=== PATIENT | female | born 1955 | race Caucasian/White ===

== ENCOUNTER 2016-10-23 13:46 | Emergency (ER) | payer OTHER ==
[2016-10-23 13:58] VITALS: RESP 16; TEMP 97.5
--- NOTE | 2016-10-23 15:57 | EDPHY ---
H & P Stated Complaint: head lac Time Seen by Provider: 10/23/16 14:58 HPI/ROS: CHIEF COMPLAINT: forehead laceration HISTORY OF PRESENT ILLNESS: 61-year-old female presents emergency department with a laceration to her forehead from the screen door of a house. Patient knocked on her neighbor's door, the dog's jumped on the screen door that flew open and hit her in the head. Patient denies loss of consciousness, reports she did not fall, states no blurred vision, nausea common confusion. Tetanus is up-to-date. Patient reports initially she had a mild headache, this has resolved, she does not take any anticoagulants. REVIEW OF SYSTEMS: A comprehensive 10 point review of systems is otherwise negative aside from elements mentioned in the history of present illness. Source: Patient Exam Limitations: No limitations - Personal History Current Tetanus/Diphtheria Vaccine: Yes Current Tetanus Diphtheria and Acellular Pertussis (TDAP): Yes - Medical/Surgical History Hx Asthma: Yes Hx Chronic Respiratory Disease: No Hx Diabetes: No Hx Cardiac Disease: No Hx Renal Disease: No Hx Cirrhosis: No Hx Alcoholism: No Hx HIV/AIDS: No Hx Splenectomy or Spleen Trauma: No Other PMH: Asthma - Social History Smoking Status: Never smoked - Physical Exam Exam: Physical Exam Gen: Alert and Oriented, NAD HEENT: PERRL, moist mucous membranes, no hemotympanum, no septal hematoma NECK: no C-spine tenderness Cardiac: normal rate and rhythm PULM: No distress BACK: No CVA tenderness NEURO: Neurologically grossly intact, normal cerebellar exam, normal finger- nose, [id number], rapid alternating movements, normal gait EXTREMITIES: normal appearing SKIN: 1 cm superficial vertical laceration to right upper forehead in hairline PSYCH: answers questions appropriately. Constitutional: Initial Vital Signs Temperature (C) 36.4 C 10/23/16 13:55 Heart Rate 99 10/23/16 13:55 Respiratory Rate 16 10/23/16 13:55 Blood Pressure 153/89 H 10/23/16 13:55 O2 Sat (%) 98 10/23/16 13:55 O2 Delivery Mode Room Air Allergies/Adverse Reactions: Sulfa (Sulfonamide Antibiotics) Allergy (Verified 03/23/11 11:11) Home Medications: Medication Instructions Recorded Detrol LA 0 mg DAILY 03/23/11 Flovent Hfa 0 mg 03/23/11 Hydrochlorothiazide [HCTZ (*)] 25 mg PO DAILY 03/23/11 Hydrocodone/APAP 5/325 [[place] 5 mg PO Q4PRN PRN #20 tab 03/23/11 5/325 (*)] Thyroid Meds 03/23/11 Medical Decision Making Procedures: Procedure: Laceration repair. Verbal consent was obtained from the patient. The 1 cm laceration on the forehead was anesthetized using 1% lidocaine with epinephrine. The wound was carefully irrigated by the emergency department telegraph repeater technician. Next, the wound was prepped and draped in sterile fashion and explored to its base with a gloved finger. There were no deep structures involved. No vascular injury was identified. No foreign bodies were identified. The wound was repaired with 6.0 Prolene, 2. Simple interrupted sutures. The wound repair was simple. The procedure was performed by myself. Tetanus and antibiotic status were addressed. ED Course/Re-evaluation: This patient presents after a minor head injury with no, nausea, vomiting, blurred vision, amnesia or LOC. Neurologic exam normal. No indication for neuro imaging. CHI precautions given. Differential Diagnosis: The differential diagnosis for the patient's head injury included but was not limited to concussion, skull fracture, intra-parenchymal contusion, subarachnoid , subdural and epidural hematoma. Departure - Departure Disposition: Home, Routine, Self-Care Clinical Impression: Minor head injury without loss of consciousness Qualifiers: Encounter type: initial encounter Qualifier Code: (S09.90XA) Unspecified injury of head, initial encounter Laceration of forehead Qualifiers: Encounter type: initial encounter Qualifier Code: (S01.81XA) Laceration without foreign body of other part of head, initial encounter Condition: Good Instructions: Head Injury (ED), Facial Laceration (ED), Care For Your Stitches (ED) Additional Instructions: Return to the emergency department in 4-5 days for suture removal or Dr. Montalvo can removed these. Return sooner for any forceful vomiting, confusion, altered gait, any other questions or concerns. Referrals: Ana Maria Montalvo MD [Primary Care Provider] - As per Instructions
[2016-10-23 16:45] VITALS: BP 146/90; PULSE 89; O2SAT 94
== END 2016-10-23 16:42 | disposition home or self-care (01) ==
PROC: 0HQ1XZZ Repair Face Skin, External Approach (ICD-10-PCS; principal; 2016-10-23)
DX: S01.81XA Laceration without foreign body of other part of head, initial encounter (principal); J45.909 Unspecified asthma, uncomplicated; W22.8XXA Striking against or struck by other objects, initial encounter

== ENCOUNTER → 2017-05-25 | Outpatient (CLI) | payer OTHER | LOC: FIMAGING 15:30 | PROVIDERS: ATTEND Family Medicine | DX: Z12.31 Encounter for screening mammogram for malignant neoplasm of breast (principal) | CPT/HCPCS: G0202 ==

== ENCOUNTER → 2018-12-23 | Outpatient (CLI) | payer OTHER | LOC: FIMAGING 07:27 | PROVIDERS: ATTEND Radiology Diagnostic Radiology | DX: R22.43 Localized swelling, mass and lump, lower limb, bilateral (principal); I83.813 Varicose veins of bilateral lower extremities with pain ==

== ENCOUNTER 2019-04-11 09:32 | Day surgery (SDC) | payer OTHER | END 2019-04-11 14:30 | disposition home or self-care (01) | LOC: FIMAGING 09:32 ==